=== PATIENT | male | born 1985 | race Caucasian/White ===

== ENCOUNTER 2016-11-09 16:37 | Emergency (ER) | payer OTHER ==
[~2016-11-09] VITALS: Ht 175.3 cm; Wt 100.0 kg
[2016-11-09 16:49] VITALS: BP 142/85; PULSE 72; RESP 16; O2SAT 99
[2016-11-09] MEDS ORDERED: HYDROmorphone 0.5 mg/0.5 mL iSecure Syringe IVPUSH PRN (17:00)
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
--- NOTE | 2016-11-09 18:20 | DRSVH ---
PROCEDURE: CT CERVICAL SPINE WITHOUT CONTRAST ([id number]) INDICATIONS: midline cervical spine tenderness TECHNIQUE: Noncontrast 3 mm thick sections acquired from the skull base to the T4 level. Sagittal and coronal r eformats were then constructed. For radiation dose reduction, the following was used: automated exp osure control, adjustment of mA and/or kV according to patient size. COMPARISON: None. FINDINGS: Image quality: Excellent. Bones: No fractures or dislocations. Visualized superior ribs are intact. Soft tissues: Prevertebral soft tissues are normal in thickness. No paravertebral hematomas. No ap ical pneumothoraces. IMPRESSION: No acute fractures or dislocations. Dictated by: Rayray Sung M.D. on 11/09/2016 at 18:16 Approved by: Rayray Sung M.D. on 11/09/2016 at 18:18
[2016-11-09] MEDS ORDERED: CYCL5TAB PO (18:42)
[2016-11-09 19:01] VITALS: BP 145/82; PULSE 60; RESP 16; O2SAT 98
== END 2016-11-09 19:02 | disposition home or self-care (01) ==
LOC: SED 16:37
DX: S16.1XXA Strain of muscle, fascia and tendon at neck level, initial encounter (principal); S06.0X0A Concussion without loss of consciousness, initial encounter; V49.40XA Driver injured in collision with unspecified motor vehicles in traffic accident, initial encounter; Y93.89 Activity, other specified; Y92.488 Other paved roadways as the place of occurrence of the external cause; Y99.0 Civilian activity done for income or pay; M54.6 Pain in thoracic spine
CPT/HCPCS: 72125; 96372; 99284; J1885